=== PATIENT | female | born 1970 | race American Indian/Alaskan Native ===

== ENCOUNTER 2019-11-20 07:40 | Emergency (ER) | payer SELFPAY ==
[2019-11-20] MEDS ORDERED: SODIUM CHLORIDE 0.9% 1000 ML 1,000 ML IV ONE (08:27)
--- NOTE | 2019-11-20 08:41 | Emergency Department Report ---
ED General Adult HPI - General Chief complaint: Altered Mental Status Stated complaint: AMS Time Seen by Provider: 11/20/19 08:17 Source: EMS Mode of arrival: Stretcher Limitations: No Limitations - History of Present Illness Initial comments: This is a 49-year-old female who was brought in by EMS after the police found her altered and attempting to break into cars. No further information is available to me at this time. The patient will state her name as Debbie. Otherwise she is poorly cooperative and not providing historical information. She is somewhat lethargic. She is protecting her airway. ED Review of Systems ROS: Stated complaint: AMS Other details as noted in HPI Comment: Unobtainable due to pts medical conditions ED Past Medical Hx - Past Medical History Previous Medical History?: No Additional medical history: Unknown - Surgical History Past Surgical History?: No - Social History Smoking Status: Never Smoker (Self populated) ED Physical Exam - General Limitations: Altered Mental Status, Physical Limitation General appearance: lethargic - Head Head exam: Present: atraumatic, normocephalic - Eye Eye exam: Present: normal appearance, PERRL, EOMI. Absent: scleral icterus - ENT ENT exam: Present: mucous membranes moist - Neck Neck exam: Present: normal inspection. Absent: tenderness, meningismus - Respiratory Respiratory exam: Present: normal lung sounds bilaterally. Absent: respiratory distress - Cardiovascular Cardiovascular Exam: Present: regular rate, normal rhythm. Absent: systolic murmur, diastolic murmur, rubs, gallop - GI/Abdominal GI/Abdominal exam: Present: soft, normal bowel sounds. Absent: distended, tenderness - Extremities Exam Extremities exam: Present: normal inspection, full ROM, other (No deformity) - Back Exam Back exam: Present: normal inspection (Limited) - Neurological Exam Neurological exam: Present: altered, other (Nonfocal examination) - Psychiatric Psychiatric exam: Present: flat affect - Skin Skin exam: Present: warm, dry, intact, normal color. Absent: rash ED Course Vital Signs 11/20/19 11/20/19 08:06 11:29 Temperature 97.6 F Pulse Rate 67 58 L Respiratory 16 16 Rate Blood Pressure 97/71 Blood Pressure 145/70 [Left] O2 Sat by Pulse 100 100 Oximetry - Reevaluation(s) Reevaluation #1: The patient became coherent. She denied hallucinosis. She denied suicidal ideation. She demanded discharge. She did not meet 1013 criteria. Her urine was still pending so she was asked to sign out AMA. She refused to do so. She left without discharge. 11/20/19 13:11 ED Medical Decision Making - Lab Data Result diagrams: 11/20/19 09:35 11/20/19 09:35 Laboratory Results - last 24 hr 11/20/19 11/20/19 11/20/19 09:35 09:35 09:35 WBC 4.9 RBC 4.04 Hgb 13.1 Hct 37.8 MCV 94 MCH 33 H MCHC 35 H RDW 13.3 Plt Count 246 Lymph % (Auto) 50.1 H [place] % (Auto) 8.6 H Eos % (Auto) 0.6 Baso % (Auto) 0.8 Lymph # 2.5 [place]ee # 0.4 Eos # 0.0 Baso # 0.0 Seg Neutrophils % 39.9 L Seg Neutrophils # 2.0 PT 13.1 INR 1.01 APTT 28.8 Ammonia 27.0 Salicylates Acetaminophen Plasma/Serum Alcohol 11/20/19 11/20/19 11/20/19 09:35 09:35 09:35 WBC RBC Hgb Hct MCV MCH MCHC RDW Plt Count Lymph % (Auto) [place] % (Auto) Eos % (Auto) Baso % (Auto) Lymph # [place] # Eos # Baso # Seg Neutrophils % Seg Neutrophils # PT INR APTT Ammonia Salicylates < 0.3 L Acetaminophen < 5.0 L Plasma/Serum Alcohol < 0.01 Laboratory Results - last 24 hr 11/20/19 11/20/19 11/20/19 08:30 09:35 09:35 WBC 4.9 RBC 4.04 Hgb 13.1 Hct 37.8 MCV 94 MCH 33 H MCHC 35 H RDW 13.3 Plt Count 246 Lymph % (Auto) 50.1 H [place] % (Auto) 8.6 H Eos % (Auto) 0.6 Baso % (Auto) 0.8 Lymph # 2.5 [place] # 0.4 Eos # 0.0 Baso # 0.0 Seg Neutrophils % 39.9 L Seg Neutrophils # 2.0 PT INR APTT Sodium 142 Chloride 106.1 Carbon Dioxide 25 BUN 10 Creatinine 0.6 L Estimated GFR > 60 BUN/Creatinine Ratio 17 Glucose 97 Calcium 9.1 Magnesium 2.50 H Total Bilirubin AST ALT Alkaline Phosphatase Ammonia Total Creatine Kinase Total Protein Albumin Albumin/Globulin Ratio TSH Salicylates Acetaminophen Plasma/Serum Alcohol 11/20/19 11/20/19 11/20/19 09:35 09:35 09:35 WBC RBC Hgb Hct MCV MCH MCHC RDW Plt Count Lymph % (Auto) [place] % (Auto) Eos % (Auto) Baso % (Auto) Lymph # [place] # Eos # Baso # Seg Neutrophils % Seg Neutrophils # PT 13.1 INR 1.01 APTT 28.8 Sodium Chloride Carbon Dioxide BUN Creatinine Estimated GFR BUN/Creatinine Ratio Glucose Calcium Magnesium Total Bilirubin AST ALT Alkaline Phosphatase Ammonia 27.0 Total Creatine Kinase Total Protein Albumin Albumin/Globulin Ratio TSH 2.220 Salicylates Acetaminophen Plasma/Serum Alcohol 11/20/19 11/20/19 11/20/19 09:35 09:35 09:35 WBC RBC Hgb Hct MCV MCH MCHC RDW Plt Count Lymph % (Auto) [place] % (Auto) Eos % (Auto) Baso % (Auto) Lymph # [place] # Eos # Baso # Seg Neutrophils % Seg Neutrophils # PT INR APTT Sodium Chloride Carbon Dioxide BUN Creatinine Estimated GFR BUN/Creatinine Ratio Glucose Calcium Magnesium Total Bilirubin AST ALT Alkaline Phosphatase Ammonia Total Creatine Kinase Total Protein Albumin Albumin/Globulin Ratio TSH Salicylates < 0.3 L Acetaminophen < 5.0 L Plasma/Serum Alcohol < 0.01 11/20/19 10:45 WBC RBC Hgb Hct MCV MCH MCHC RDW Plt Count Lymph % (Auto) [place] % (Auto) Eos % (Auto) Baso % (Auto) Lymph # [place] # Eos # Baso # Seg Neutrophils % Seg Neutrophils # PT INR APTT Sodium Chloride Carbon Dioxide BUN Creatinine Estimated GFR BUN/Creatinine Ratio Glucose Calcium Magnesium Total Bilirubin 0.40 AST 41 H ALT 35 Alkaline Phosphatase 101 Ammonia Total Creatine Kinase 245 H Total Protein 7.2 Albumin 3.8 L Albumin/Globulin Ratio 1.1 TSH Salicylates Acetaminophen Plasma/Serum Alcohol Critical care attestation.: If time is entered above; I have spent that time in minutes in the direct care of this critically ill patient, excluding procedure time. ED Disposition Clinical Impression: Altered mental status Qualifiers: Altered mental status type: transient alteration of awareness Qualified Code(s): R40.4 - Transient alteration of awareness Disposition: Z-07 ELOPED Is pt being admited?: No Does the pt Need Aspirin: No Condition: Stable Referrals: ADALID DAVE MD [Primary Care Provider] - 3-5 Days Time of Disposition: 13:12
--- NOTE | 2019-11-20 09:31 | XRay Report ---
CHEST 1 VIEW INDICATION / CLINICAL INFORMATION: Altered Mental Status. COMPARISON: Chest radiograph 12/18/2009 FINDINGS: SUPPORT DEVICES: None. HEART / MEDIASTINUM: No significant abnormality. LUNGS / PLEURA: No significant pulmonary or pleural abnormality. No pneumothorax. ADDITIONAL FINDINGS: No significant additional findings. IMPRESSION: 1. No acute findings. Signer Name: Gloria Tomlin MD Signed: 11/20/2019 9:27 AM Workstation Name: [email or web address]
--- NOTE | 2019-11-20 09:41 | Cat Scan Report ---
CT head/brain wo con INDICATION: Altered Mental Status. TECHNIQUE: Routine CT head without contrast. All CT scans at this location are performed using CT dos e reduction for ALARA by means of automated exposure control. COMPARISON: CT head 02/04/2012 FINDINGS: BRAIN / INTRACRANIAL CONTENTS: No acute hemorrhage, mass effect, midline shift, or hydrocephalus. No appreciable acute large territorial or lacunar infarct. No chronic infarct or focal atrophy. Normal b rain volume and ventricular/sulcal size for age. ORBITS: No significant abnormality of visualized orbits. SINUSES / MASTOIDS: No significant abnormality of visualized sinuses and mastoid air cells. ADDITIONAL FINDINGS: None. IMPRESSION: 1. Negative head CT. Signer Name: Gloria Tomlin MD Signed: 11/20/2019 9:37 AM Workstation Name: [email or web address] [id number]
[2019-11-20 10:17] LABS: Basophils % (Auto) 0.8 % (0.0-1.8); Eosinophils % (Auto) 0.6 % (0.0-4.3); Hematocrit 37.8 % (30.3-42.9); Hemoglobin 13.1 gm/dl (10.1-14.3); Lymphocytes # (Auto) 2.5 K/mm3 (1.2-5.4); Lymphocytes % (Auto) 50.1 % (13.4-35.0); Mean Corpuscular HGB Conc 35 % (30-34); Mean Corpuscular Volume 94 fl (79-97); Monocytes # (Auto) 0.4 K/mm3 (0.0-0.8); Monocytes % (Auto) 8.6 % (0.0-7.3); Platelet Count 246 K/mm3 (140-440); Red Blood Count 4.04 M/mm3 (3.65-5.03); Red Cell Distribution Width 13.3 % (13.2-15.2)
[2019-11-20 10:39] LABS: INR 1.01 (0.87-1.13)
[2019-11-20 10:40] LABS: Partial Thromboplastin Time 28.8 Sec. (24.2-36.6)
[2019-11-20 11:29] LABS: Alanine Aminotransferase 35 units/L (7-56); Albumin 3.8 g/dL (3.9-5)
[2019-11-20 11:30] VITALS: BP 145/70
[2019-11-20 11:38] LABS: BUN/Creatinine Ratio 17; Blood Urea Nitrogen 10 mg/dL (7-17); Calcium 9.1 mg/dL (8.4-10.2); Hemolysis Index 264
[2019-11-20 11:54] LABS: Bilirubin,Direct < 0.2 mg/dL (0-0.2)
[2019-11-20 13:10] LABS: Amphetamine Screen,Urine PRESUMPTIVE NEGATIVE; Cannabinoid Screen,Urine PRESUMPTIVE NEGATIVE; Cocaine Screen,Urine PRESUMPTIVE NEGATIVE; Methadone Screen,Urine PRESUMPTIVE NEGATIVE; Opiate Screen,Urine PRESUMPTIVE NEGATIVE
[2019-11-20 13:20] LABS: Bacteria,Urine 1+ /HPF (Negative); Bilirubin,Urine NEG (Negative); Blood,Urine NEG (Negative); Color,Urine Yellow (Yellow); Mucus,Urine 3+ /HPF; Protein,Urine <15 mg/dL mg/dL (Negative)
[2019-11-20 13:32] LABS: Benzodiazepines Screen,Urine PRESUMPTIVE POSITIVE
== END 2019-11-20 13:12 | disposition left against medical advice (07) ==
LOC: ED 07:40
DX: R41.82 Altered mental status, unspecified (principal); Z53.21 Procedure and treatment not carried out due to patient leaving prior to being seen by health care provider
CPT/HCPCS: 36415; 70450; 71045; 80048; 80076; 80307; 81001; 82140; 82550; 83735; 84443; 85025; 85610; 85730; J7030; 80320; 96360; G0480